=== PATIENT | female | born 1940 | race Caucasian/White ===

== ENCOUNTER → 2018-09-06 | Outpatient (REF) | payer MEDICARE ==
[2018-09-06 17:39] LABS: APPEARANCE, URINE HAZY (CLEAR); BACTERIA, URINE AUTO NEGATIVE (NEGATIVE); BILIRUBIN, URINE AUTO NEGATIVE (NEGATIVE); BLOOD, URINE BLOOD NEGATIVE (NEGATIVE); COLOR, URINE YELLOW (YELLOW); GLUCOSE, URINE (UA) AUTO NEGATIVE (NEGATIVE); KETONE, URINE AUTO NEGATIVE (NEGATIVE); LEUKOCYTE ESTERASE, URINE AUTO TRACE (NEGATIVE); MUCUS, URINE SMALL (NEGATIVE); NITRITE, URINE AUTO NEGATIVE (NEGATIVE); PROTEIN, URINE AUTO NEGATIVE (NEGATIVE); RBC, URINE AUTO 1 /HPF (0-3); SPECIFIC GRAVITY URINE AUTO 1.019 (1.002-1.035); SQUAMOUS EPITHELIAL CELL UR AU 7 /HPF (0-6); UROBILINOGEN, URINE AUTO 0.2 mg/dL (0.0-2.0); WBC, URINE AUTO 4 /HPF (0-3)
== END ==
LOC: M LAB REF 16:40
DX: N39.0 Urinary tract infection, site not specified (principal)
CPT/HCPCS: 81001

== ENCOUNTER → 2018-09-09 | Outpatient (REF) | payer MEDICARE ==
[2018-09-09 15:07] LABS: APPEARANCE, URINE HAZY (CLEAR); BACTERIA, URINE AUTO 1+ (NEGATIVE); BILIRUBIN, URINE AUTO NEGATIVE (NEGATIVE); BLOOD, URINE BLOOD NEGATIVE (NEGATIVE); COLOR, URINE YELLOW (YELLOW); GLUCOSE, URINE (UA) AUTO NEGATIVE (NEGATIVE); KETONE, URINE AUTO NEGATIVE (NEGATIVE); LEUKOCYTE ESTERASE, URINE AUTO NEGATIVE (NEGATIVE); MUCUS, URINE SMALL (NEGATIVE); NITRITE, URINE AUTO NEGATIVE (NEGATIVE); PROTEIN, URINE AUTO NEGATIVE (NEGATIVE); RBC, URINE AUTO 0 /HPF (0-3); SQUAMOUS EPITHELIAL CELL UR AU 0 /HPF (0-6); UROBILINOGEN, URINE AUTO 0.2 mg/dL (0.0-2.0); WBC, URINE AUTO 1 /HPF (0-3)
== END ==
LOC: M LAB REF 14:38
DX: N39.0 Urinary tract infection, site not specified (principal)
CPT/HCPCS: 81001

== ENCOUNTER → 2019-11-23 | Outpatient (REF) | payer MEDICARE ==
[2019-11-23 17:45] LABS: INFLUENZA A AMPLIFICATION NEGATIVE (NEGATIVE); INFLUENZA B AMPLIFICATION NEGATIVE (NEGATIVE)
== END ==
LOC: M LAB REF 12:10
PROVIDERS: ATTEND Physician Assistant Medical
DX: R50.9 Fever, unspecified (principal)

== ENCOUNTER 2019-12-09 12:38 | Emergency (ER) | payer MEDICARE ==
[~2019-12-09] VITALS: Ht 167.6 cm; Wt 79.1 kg
[2019-12-09] MEDS ORDERED: ANOR1AER (12:47)
[2019-12-09] MEDS ORDERED: LEVO25TA5 PO (12:47)
--- NOTE | 2019-12-09 14:38 | REP ---
CHEST, TWO VIEWS: Two views of the chest are performed without prior studies for comparison. There appears to be mild bibasilar interstitial fibrosis. No consolidating infiltrate is seen. Heart is normal in size. There is tortuosity of the thoracic aorta. Mediastinal silhouette is otherwise unremarkable. There is mild curvature of the thoracic spine convex to the right with degenerative changes. IMPRESSION: No evidence of acute infiltrate. Mild bibasilar interstitial fibrosis. Electronically Signed by Tony Huber MD 12/09/2019 07:59 P
[2019-12-09] MEDS ORDERED: AUGM875T28 PO (15:00)
[2019-12-09] MEDS ORDERED: FLON1SPR NARES (15:00)
[2019-12-09] MEDS ORDERED: CETI10CA2 PO (15:00)
[2019-12-09] MEDS ORDERED: PRED10TA2 PO (15:00)
[2019-12-09 15:10] VITALS: BP 166/83
== END 2019-12-09 15:26 | disposition home or self-care (01) ==
LOC: M ED 12:38
DX: J44.1 Chronic obstructive pulmonary disease with (acute) exacerbation (principal); J32.9 Chronic sinusitis, unspecified; E03.9 Hypothyroidism, unspecified; Z79.899 Other long term (current) drug therapy; Z79.890 Hormone replacement therapy; Z88.1 Allergy status to other antibiotic agents; Z87.891 Personal history of nicotine dependence

== ENCOUNTER → 2021-01-05 | Outpatient (CLI) | payer MEDICARE ==
[~2021-01-05] MED LIST: ANOR1AER; AUGM875T28 PO; CETI10CA2 PO; FLON1SPR NARES; ISOVUE-370 76% 100ML VIAL As Ordered ONE; LEVO25TA5 PO; PRED10TA2 PO
--- NOTE | 2021-01-05 10:16 | REPVR ---
PROCEDURE INFORMATION: Exam: CT Neck With Contrast Exam date and time: 01/05/2021 9:50 AM Age: 80 years old Clinical indication: Throat pain; Additional info: Dysphagia TECHNIQUE: Imaging protocol: Computed tomography images of the neck with intravenous contrast. Radiation optimization: All CT scans at this facility use at least one of these dose optimization techniques: automated exposure control; mA and/or kV adjustment per patient size (includes targeted exams where dose is matched to clinical indication); or iterative reconstruction. Contrast material: ISOVUE 370; Contrast volume: 75 ml; Contrast route: INTRAVENOUS (IV); COMPARISON: No relevant prior studies available. FINDINGS: Nasopharynx: Unremarkable. Oropharynx: Unremarkable. No significant tonsillar enlargement. Hypopharynx: Unremarkable. Larynx: Unremarkable. Normal epiglottis. Retropharyngeal space: Unremarkable. Submandibular/Parotid glands: Normal. Glands are normal in size. Thyroid: Normal. No enlarged or calcified nodules. Lymph nodes: Unremarkable. No lymphadenopathy. Trachea: Visualized trachea is unremarkable. Lungs: There are mild biapical emphysematous changes. Bones/joints: There is degenerative disc disease and spondylosis. There are severe degenerative changes at the left C1/C2 lateral articulation.. No acute fracture. Soft tissues: Unremarkable. No significant soft tissue swelling. IMPRESSION: No acute soft tissue abnormality. Electronically signed by: Phylicia Cardoso On 01/05/2021 10:17:06 AM
== END ==
LOC: M RAD 09:28
PROVIDERS: ATTEND Physician Assistant Medical
DX: R47.02 Dysphasia (principal)
CPT/HCPCS: 70491; Q9967

== ENCOUNTER → 2021-02-08 | Outpatient (CLI) | payer MEDICARE ==
[~2021-02-08] MED LIST changes: -ISOVUE-370 76% 100ML VIAL As Ordered ONE
--- NOTE | 2021-02-08 14:01 | REP ---
INDICATION: NECK PAIN. No history of trauma whatsoever COMPARISON: None. TECHNIQUE: Seven views FINDINGS: Seven views of the cervical spine show no acute fracture, dislocation or subluxation. There is C4-5, C6-7 and C7-T1 disc space narrowing which is moderate. The facet joints are well aligned bilaterally. Degenerative facet and uncovertebral joint changes are seen bilaterally at all levels. The intervertebral foramina are patent bilaterally and the neural canal is not encroached upon. There is no destructive osseous lesion. Flexion and extension does not appear to be particularly limited radiographically. The anterior spinal soft tissues appear unremarkable. The dens cannot be effectively evaluated secondary to the superimposition of osseous structures and/or dentition on all views. IMPRESSION: Chronic changes as described above. Although this plain radiographic evaluation of the cervical spine shows no evidence of a fracture, it should be remembered that CT is much more sensitive than plain radiography of the C-spine in detecting fractures. If this examination was ordered to rule out a fracture then CT of the cervical spine is recommended. <Electronically signed by Dayo Morales > 02/08/21 [id number]
== END ==
LOC: M RAD 13:23
PROVIDERS: ATTEND Physician Assistant Medical
DX: M54.2 Cervicalgia (principal)

== ENCOUNTER 2021-05-01 15:55 | Emergency (ER) | payer MEDICARE ==
[~2021-05-01] VITALS: Ht 167.6 cm; Wt 80.2 kg
[2021-05-01] MEDS ORDERED: BREO1INH3 (16:07)
[2021-05-01] MEDS ORDERED: NAPR-855 (16:07)
[2021-05-01] MEDS ORDERED: ADVI200C18 PO (16:08)
[2021-05-01] MEDS ORDERED: ACET650T15 PO (16:08)
[2021-05-01] MEDS ORDERED: traMADol 50 MG TAB PO ONE (17:30)
--- NOTE | 2021-05-01 18:25 | REPVR ---
PROCEDURE INFORMATION: Exam: XR Right Hip Exam date and time: 05/01/2021 5:50 PM Age: 80 years old Clinical indication: Hip pain and pelvic pain; Right hip TECHNIQUE: Imaging protocol: XR Right hip. Views: 2 or 3 views hip with pelvis when performed. COMPARISON: No relevant prior studies available. FINDINGS: Bones/joints: Marked bilateral hip arthrosis with joint space narrowing and femoroacetabular osteophytosis. Degenerative arthropathy in the visualized lower lumbar spine. Soft tissues: Unremarkable. 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 No acute findings. Electronically signed by: Eric Zambrano On 05/01/2021 18:25:06 PM
[2021-05-01] MEDS ORDERED: TRAM50TA2 PO (18:36)
[2021-05-01 19:21] VITALS: BP 188/97
== END 2021-05-01 19:26 | disposition home or self-care (01) ==
LOC: M ED 15:55
DX: M16.11 Unilateral primary osteoarthritis, right hip (principal); J44.9 Chronic obstructive pulmonary disease, unspecified; E03.9 Hypothyroidism, unspecified; Z88.1 Allergy status to other antibiotic agents; Z87.891 Personal history of nicotine dependence; Z79.899 Other long term (current) drug therapy; Z79.890 Hormone replacement therapy

== ENCOUNTER 2021-06-16 21:06 | Emergency (ER) | payer MEDICARE ==
[~2021-06-16] VITALS: Ht 167.6 cm; Wt 77.3 kg
[~2021-06-16 21:06] MED LIST changes: +ACET650T15 PO; +ADVI200C18 PO; +BREO1INH3; +NAPR-855; +TRAM50TA2 PO
[2021-06-16] MEDS ORDERED: LIDOCAINE W/EPINEPHRINE 1% 20ML VIAL As Ordered ONE (21:43)
[2021-06-16] MEDS ORDERED: BOOSTRIX/ADACEL VACCINE (DIPHTH/PERTUSS/ACELL/TETANUS) 0.5ML SYR IM ONE (22:10)
[2021-06-16 22:17] LABS: BASO % 0.7 % (0.0-1.0); EOS # 0.1 10^3/uL (0.0-0.5); EOS % 1.8 % (0.0-3.0); HEMATOCRIT 40.4 % (36.0-47.0); HEMOGLOBIN 13.3 g/dl (12.0-15.5); LYMPH # 1.6 10^3/uL (1.5-5.0); MEAN CORPUSCULAR HEMOGLOBIN 29.4 pg (27.0-33.0); MEAN CORPUSCULAR HGB CONC 32.9 g/dl (32.0-36.5); MEAN CORPUSCULAR VOLUME 89.2 fl (80.0-96.0); MONO # 0.6 10^3/uL (0.0-0.8); MONO % 9.1 % (2.0-8.0); NEUTROPHILS # 3.7 10^3/uL (1.5-8.5); NEUTROPHILS % 60.2 % (36.0-66.0); PLATELET COUNT, AUTOMATED 202 10^3/uL (150-450); RED BLOOD COUNT 4.53 10^6/uL (4.00-5.40); WHITE BLOOD COUNT 6.1 10^3/uL (4.0-10.0)
[2021-06-16 22:27] LABS: INR 1.05; PROTHROMBIN TIME 14.1 SECONDS (12.7-14.5)
[2021-06-16 22:28] LABS: PARTIAL THROMBOPLASTIN TIME 28.6 SECONDS (25.9-37.0)
[2021-06-16] MEDS ORDERED: ISOVUE-370 76% 100ML VIAL As Ordered ONE (22:44)
[2021-06-16 22:45] LABS: ALBUMIN 3.7 GM/DL (3.2-5.2); BILIRUBIN,TOTAL 0.5 MG/DL (0.2-1.0); CALCIUM LEVEL 8.7 MG/DL (8.8-10.2); CREATININE FOR GFR 1.12 MG/DL (0.55-1.30); GLOMERULAR FILTRATION RATE 49.8 (>32); POTASSIUM SERUM 3.9 MEQ/L (3.5-5.1); TOTAL PROTEIN 6.4 GM/DL (6.4-8.2)
--- NOTE | 2021-06-16 23:44 | REPVR ---
PROCEDURE INFORMATION: Exam: CT Cervical Spine Without Contrast Exam date and time: 06/16/2021 10:56 PM Age: 81 years old Clinical indication: Neck pain; Additional info: Fall, right sided head injury/lac/hematoma TECHNIQUE: Imaging protocol: Computed tomography images of the cervical spine without contrast. Radiation optimization: All CT scans at this facility use at least one of these dose optimization techniques: automated exposure control; mA and/or kV adjustment per patient size (includes targeted exams where dose is matched to clinical indication); or iterative reconstruction. COMPARISON: CR Spine, Cervical 02/08/2021 1:35 PM FINDINGS: Limitations: Evaluation of the spinal canal and discs are limited. Vertebrae: No acute fracture. No subluxation. Diffuse facet arthropathy. C1-C2: Joint space narrowing and marginal osteophytes changes at the atlantoodontoid joint. C2-C3: No significant disc protrusion. No severe spinal canal stenosis. No significant neural foraminal narrowing. C3-C4: No significant disc protrusion. No severe spinal canal stenosis. No significant neural foraminal narrowing. C4-C5: 4 mm right lateral recess disc osteophyte complex. Moderate spinal stenosis. Severe right neural foraminal narrowing. Mild left neural foraminal narrowing. C5-C6: 4 mm right lateral recess disc osteophyte complex. Moderate to severe spinal stenosis. Moderate right neural foraminal narrowing. Mild left neural foraminal narrowing. C6-C7: 3 mm disc osteophyte complex. Moderate spinal stenosis. Mild right neural foraminal narrowing. Moderate left neural foraminal narrowing. C7-T1: No significant disc protrusion. No severe spinal canal stenosis. No significant neural foraminal narrowing. Other bones/joints: Acute severely displaced fracture of the mid right clavicle. Clavicle is not fully imaged on this study. Soft tissues: Unremarkable. Dental: Patient is nearly edentulous. Lungs: Centrilobular emphysematous lung disease. IMPRESSION: 1. No acute spinal fracture. 2. Multilevel degenerative disc disease as described. 3. Acute severely displaced fracture of the mid right clavicle. Electronically signed by: Servando Fortune On 06/16/2021 23:43:43 PM
--- NOTE | 2021-06-16 23:44 | REPVR ---
PROCEDURE INFORMATION: Exam: CT Head Without Contrast Exam date and time: 06/16/2021 10:56 PM Age: 81 years old Clinical indication: Injury or trauma; Fall; Concussion/head injury; Consciousness not specified; Additional info: Fall, right sided head injury/lac/hematoma TECHNIQUE: Imaging protocol: Computed tomography of the head without contrast. Radiation optimization: All CT scans at this facility use at least one of these dose optimization techniques: automated exposure control; mA and/or kV adjustment per patient size (includes targeted exams where dose is matched to clinical indication); or iterative reconstruction. COMPARISON: CT Neck with contrast 01/05/2021 9:49 AM FINDINGS: Limitations: Limited by motion artifact. Brain: Normal. No hemorrhage. Unremarkable white matter. No mass effect. Cortical pritchett-white matter differentiation is preserved. Cerebral ventricles: No ventriculomegaly. Paranasal sinuses: Visualized sinuses are unremarkable. No fluid levels. Mastoid air cells: Visualized mastoid air cells are well aerated. Vasculature: Atherosclerotic calcification of the carotid siphon. Bones/joints: Unremarkable. No acute fracture. Soft tissues: Right parietal scalp swelling. IMPRESSION: 1. No acute intracranial hemorrhage. 2. Right parietal scalp swelling. Electronically signed by: Servando Fortune On 06/16/2021 23:44:23 PM
[2021-06-16] MEDS ORDERED: KETOROLAC 30 MG/ML 1ML VIAL IV ONE (23:50)
--- NOTE | 2021-06-16 23:51 | REPVR ---
PROCEDURE INFORMATION: Exam: CT Chest With Contrast; Diagnostic Exam date and time: 06/16/2021 10:56 PM Age: 81 years old Clinical indication: Injury or trauma; Fall; Blunt trauma (contusions or hematomas); Additional info: Fall, right chest/flank pain TECHNIQUE: Imaging protocol: Diagnostic computed tomography of the chest with contrast. Radiation optimization: All CT scans at this facility use at least one of these dose optimization techniques: automated exposure control; mA and/or kV adjustment per patient size (includes targeted exams where dose is matched to clinical indication); or iterative reconstruction. Contrast material: ISO; Contrast volume: 100 ml; Contrast route: INTRAVENOUS (IV); COMPARISON: CR Chest, 2 view PA, Lat 12/09/2019 2:12 PM FINDINGS: Limitations: Limited by motion artifact. Bronchial tree: Visualized bronchial tree is unremarkable. Lungs: Emphysematous lung disease. Scattered linear atelectasis bilaterally. No acute consolidation. Subpleural nodule in the lateral basal right lower lobe measuring 4 mm. (Series 201, image 69). Pleural spaces: Unremarkable. No pneumothorax. No pleural effusion. Heart: Unremarkable. No cardiomegaly. No pericardial effusion. Aorta: Ascending thoracic aorta measures 3.6 cm. Aortic arch measures 2.6 cm. Descending thoracic aorta measures 2.5 cm. No aortic dissection. No aortic rupture. Mild atherosclerotic disease. Lymph nodes: Unremarkable. No enlarged lymph nodes. Liver: Multiple benign-appearing cysts in the liver measuring up to 7.1 cm. Spleen: Multiple calcified granulomas in the spleen. Bones/joints: Acute severely displaced fracture of the mid right clavicle. Severe degenerative spine. Acute mildly displaced fracture of the right 5th rib laterally. Soft tissues: Unremarkable. IMPRESSION: 1. Borderline dilated ascending thoracic aorta. 2. Multiple benign-appearing cysts in the liver. 3. Subpleural lung nodule in the right lower lobe. For patients at low risk (minimal or absent history of smoking and of other known risk factors), no routine follow-up is indicated. For patients at high risk (history of smoking or of other known risk factors), consider optional CT Chest at 12 months. (Reference: Will) 4. Acute severely displaced fracture of the mid right clavicle. 5. Acute mildly displaced fracture of the right 5th rib laterally. COMMENTS: Consistent with the [employer]'s Incidental Findings Committee white paper (J Am Kavin Radiol 2018): Any incidental renal lesion less than 1 cm or classified as too small to characterize, or any incidental cystic renal lesion characterized as simple-appearing, is likely benign. No follow-up imaging is recommended for these lesions per consensus recommendations based on imaging criteria. REFERENCES: Will Delgado, et al. Guidelines for Management of Incidental Pulmonary Nodules Detected on CT Images: From the Fleischner Society 2017. Radiology. 2017;284(1):228-243. Electronically signed by: Servando Fortune On 06/16/2021 23:50:57 PM
--- NOTE | 2021-06-16 23:57 | REPVR ---
PROCEDURE INFORMATION: Exam: CT Abdomen And Pelvis With Contrast Exam date and time: 06/16/2021 10:56 PM Age: 81 years old Clinical indication: Abdominal pain; Generalized; Additional info: Fall, right chest/flank pain TECHNIQUE: Imaging protocol: Computed tomography of the abdomen and pelvis with contrast. Radiation optimization: All CT scans at this facility use at least one of these dose optimization techniques: automated exposure control; mA and/or kV adjustment per patient size (includes targeted exams where dose is matched to clinical indication); or iterative reconstruction. Contrast material: ISO; Contrast volume: 100 ml; Contrast route: INTRAVENOUS (IV); COMPARISON: CR Hip,AP,LAT to include Pelvis RIGHT 05/01/2021 5:31 PM FINDINGS: Lungs: Scattered linear atelectasis in the lung bases. Liver: Multiple benign-appearing cysts in the liver measuring up to 7.1 cm. There are few irregular hypodense lesions in the inferior right hepatic lobe have coarse peripheral calcification. Largest lesion is located in the inferior tip of the right hepatic lobe measuring 2.1 cm. There is enlarged Emi lobe of the liver. Gallbladder and bile ducts: Normal. No calcified stones. No ductal dilation. Pancreas: Normal. No ductal dilation. Spleen: Normal. No splenomegaly. Adrenal glands: Normal. No mass. Kidneys and ureters: No hydronephrosis. Parapelvic renal cysts bilaterally. No follow-up is necessary. Stomach and bowel: Small sliding-type gastric hiatal hernia. Moderate stool the status post hysterectomy. No abnormal bowel dilatation. No abnormal bowel wall thickening. Sigmoid diverticulosis without diverticulitis. Appendix: No evidence of appendicitis. Intraperitoneal space: Unremarkable. No free air. No significant fluid collection. Vasculature: Moderate atherosclerotic disease. No aortic aneurysm. Lymph nodes: Unremarkable. No enlarged lymph nodes. Urinary bladder: Unremarkable as visualized. Reproductive: Unremarkable as visualized. Pelvic Floor: There is dilatation of the levator hiatus. Bones/joints: Severe degenerative spine. No acute fracture. Severe osteoarthritic changes of the hips bilaterally. Soft tissues: Unremarkable. IMPRESSION: 1. No evidence of acute abdominal injury. 2. Multiple benign-appearing cysts in the liver. No follow-up is necessary. 3. There are few irregular hypodense lesions in the inferior right hepatic lobe have coarse peripheral calcification. Possible dystrophic calcifications. Consider routine evaluation with non-emergent liver MRI. 4. Additional findings as described. COMMENTS: Consistent with the [employer]'s Incidental Findings Committee white paper (J Am Kavin Radiol 2018): Any incidental renal lesion less than 1 cm or classified as too small to characterize, or any incidental cystic renal lesion characterized as simple-appearing, is likely benign. No follow-up imaging is recommended for these lesions per consensus recommendations based on imaging criteria. Electronically signed by: Servando Fortune On 06/16/2021 23:57:11 PM
[2021-06-17] VITALS: BP 195/96
--- NOTE | 2021-06-17 01:12 | REPVR ---
PROCEDURE INFORMATION: Exam: XR Right Hip Exam date and time: 06/16/2021 12:48 AM Age: 81 years old Clinical indication: Fall on right side, pain; Additional info: Fall on right side, pain TECHNIQUE: Imaging protocol: XR Right hip. Views: 2 or 3 views hip with pelvis when performed. COMPARISON: CT ABD/PEL W/IV CONTRAST ONLY 06/16/2021 10:59 PM FINDINGS: Bones/joints: No acute fracture. No dislocation. Generalized osteopenia. Severe joint space narrowing in the hips bilaterally. Subchondral sclerosis and marginal osteophytes in the hips. Soft tissues: Unremarkable. Organs: Residual contrast in the bladder. IMPRESSION: 1. No acute fracture. 2. Severe osteoarthritic changes in the hips bilaterally. Electronically signed by: Servando Fortune On 06/17/2021 01:11:54 AM
--- NOTE | 2021-06-17 01:12 | REPVR ---
PROCEDURE INFORMATION: Exam: XR Right Shoulder Exam date and time: 06/16/2021 12:48 AM Age: 81 years old Clinical indication: Fall on right side, pain; Additional info: Fall on right saide, pain TECHNIQUE: Imaging protocol: XR Right shoulder. Views: 2 or more views. Transscapular view was also included. COMPARISON: CT Chest with contrast 06/16/2021 10:59 PM FINDINGS: Bones/joints: Acute moderately displaced fracture of the mid right clavicle. Distal fracture fracture fragment is depressed approximately 5 mm. No significant angulation. Mild hypertrophic changes of the acromioclavicular joint. No dislocation. Soft tissues: Normal. IMPRESSION: Acute moderately displaced fracture of the mid right clavicle. Electronically signed by: Servando Fortune On 06/17/2021 01:12:40 AM
--- NOTE | 2021-06-17 01:13 | REPVR ---
PROCEDURE INFORMATION: Exam: XR Right Elbow Exam date and time: 06/16/2021 12:48 AM Age: 81 years old Clinical indication: Fall on right side, pain; Additional info: Fall on right saide, pain TECHNIQUE: Imaging protocol: XR Right elbow. Views: 3 or more views. COMPARISON: No relevant prior studies available. FINDINGS: Limitations: Examination is limited by obliquity of the projection. True AP and lateral views were not submitted. Bones/joints: No acute fracture. No dislocation. Generalized osteopenia. Soft tissues: Normal. IMPRESSION: 1. Limited evaluation. 2. No acute fracture. Electronically signed by: Servando Fortune On 06/17/2021 01:13:42 AM
[2021-06-17] MEDS ORDERED: PERC5TAB12 PO (02:08)
[2021-06-17] MEDS ORDERED: KETO10TAB PO (02:08)
[2021-06-17] MEDS ORDERED: OXYCODONE/APAP 5MG/325MG(BULK FOR ED) 1 TABLET PO ONE (02:10)
--- NOTE | 2021-06-17 12:23 | ED PDOC ---
Post-Departure Follow-Up certified letter sent to pt re formal read of ct chest and abd/p. needs outpt fu . no pcp listed.d obtain pcp name and fax for fu Cherri Connelly MD Jun 17, 2021 12:23
== END 2021-06-17 03:00 | disposition home or self-care (01) ==
LOC: M ED 21:06
DX: S22.31XA Fracture of one rib, right side, initial encounter for closed fracture (principal); S42.001A Fracture of unspecified part of right clavicle, initial encounter for closed fracture; S01.01XA Laceration without foreign body of scalp, initial encounter; W19.XXXA Unspecified fall, initial encounter; Y92.099 Unspecified place in other non-institutional residence as the place of occurrence of the external cause; Y93.9 Activity, unspecified; Y99.9 Unspecified external cause status; M16.0 Bilateral primary osteoarthritis of hip; K76.89 Other specified diseases of liver; R91.1 Solitary pulmonary nodule; M50.30 Other cervical disc degeneration, unspecified cervical region; Z79.899 Other long term (current) drug therapy; Z88.1 Allergy status to other antibiotic agents; Z88.8 Allergy status to other drugs, medicaments and biological substances
CPT/HCPCS: 70450; 71260; 72125; 73030; 73080; 73502; 74177; 80047; 80053; 85025; 85610; 85730; 86850; 86900; 86901; 90471; 90715; 96374; 99284; J1885; Q9967

== ENCOUNTER → 2021-07-08 | Outpatient (CLI) | payer MEDICARE ==
[~2021-07-08] MED LIST changes: +KETO10TAB PO; +PERC5TAB12 PO
--- NOTE | 2021-07-08 12:03 | REP ---
INDICATION: EVAL FOR OCCULT FX. COMPARISON: Standard contrast-enhanced chest CT of 06/16/2021 which showed a right clavicular fracture TECHNIQUE: Standard helical technique without intravenous contrast attention right clavicle FINDINGS: The comminuted inferiorly displaced clavicle fracture is unchanged compared to the chest CT. There are multiple right-sided rib fractures. There is a mid posterior right 4th rib fracture and an additional 4th rib fracture more distally. There is a proximal posterior 5th rib fracture. There is a probable posterior 6th rib fracture. There is a proximal posterior 7th rib fracture. There is a proximal posterior 8th rib fracture. The glenohumeral relationship is maintained. The acromioclavicular relationship is maintained. The imaged lung mercado shows no pneumothorax. IMPRESSION: Clavicular and multiple rib fractures as described above. <Electronically signed by Dayo Morales > 07/08/21 [id number]
--- NOTE | 2021-07-08 12:08 | REP ---
INDICATION: EVAL FX COMPARISON: Standard chest CT with contrast of 06/16/2021 TECHNIQUE: Although ordered as a chest CT this is actually a limited chest CT attention right clavicle. FINDINGS: There is a comminuted inferiorly displaced distal clavicular fracture which 1 compared to the prior standard chest CT and using bone window technique does not appear to be significantly changed. There are multiple right-sided rib fractures. See the right shoulder report made today. There is no discernible callus formation at this time. IMPRESSION: Fractures as described above. <Electronically signed by Dayo Morales > 07/08/21 [id number]
== END ==
LOC: M PLAIMG 10:12
PROVIDERS: ATTEND Physician Assistant Surgical
DX: S42.021D Displaced fracture of shaft of right clavicle, subsequent encounter for fracture with routine healing (principal); S22.41XA Multiple fractures of ribs, right side, initial encounter for closed fracture

== ENCOUNTER → 2021-08-03 | Outpatient (CLI) | payer MEDICARE ==
--- NOTE | 2021-08-03 13:34 | REP ---
INDICATION: SUMAN LEG EDEMA ?DVT COMPARISON: None. TECHNIQUE: Real time compression and duplex Doppler interrogation of the bilateral lower extremity deep venous system is performed. Compression ultrasound is performed of the bilateral peroneal and posterior tibial veins. FINDINGS: Bilaterally, the common femoral, superficial femoral and popliteal veins are fully compressible with transducer pressure and demonstrate normal spontaneous and phasic flow, without evidence of deep venous thrombosis. No thrombus is seen in the bilateral visualized portions of the peroneal and posterior tibial veins, evaluation limited secondary to soft tissue edema. IMPRESSION: No evidence of deep venous thrombosis of the bilateral lower extremity femoral popliteal venous system. <Electronically signed by Tony Huber > 08/03/21 [id number]
== END ==
LOC: M RAD 11:47
PROVIDERS: ATTEND Internal Medicine Pulmonary Disease
DX: R60.0 Localized edema (principal)

== ENCOUNTER → 2021-12-15 | Outpatient (CLI) | payer MEDICARE ==
[~2021-12-15] MED LIST changes: +ISOVUE-370 76% 100ML VIAL As Ordered ONE
== END ==
LOC: M RAD 10:58
PROVIDERS: ATTEND Nurse Practitioner Adult Health
DX: I71.2 Thoracic aortic aneurysm, without rupture (principal); R91.1 Solitary pulmonary nodule
CPT/HCPCS: 71260; Q9967

== ENCOUNTER → 2022-01-11 | Outpatient (CLI) | payer MEDICARE ==
[~2022-01-11] MED LIST changes: -ISOVUE-370 76% 100ML VIAL As Ordered ONE
== END ==
LOC: M WUC 14:28
PROVIDERS: ATTEND Nurse Practitioner Adult Health
DX: L30.9 Dermatitis, unspecified (principal)

== ENCOUNTER → 2022-04-05 | Outpatient (CLI) | payer MEDICARE | LOC: M RAD 09:47 | PROVIDERS: ATTEND Nurse Practitioner Adult Health | DX: R51.9 Headache, unspecified (principal) ==

== ENCOUNTER → 2022-06-21 | Outpatient (CLI) | payer MEDICARE | LOC: M WUC 13:49 | PROVIDERS: ATTEND Physician Assistant | DX: M25.562 Pain in left knee (principal) ==

== ENCOUNTER → 2022-06-22 | Outpatient (CLI) | payer MEDICARE | LOC: M WHC 14:55 | PROVIDERS: ATTEND Physician Assistant | DX: Z01.810 Encounter for preprocedural cardiovascular examination (principal); M25.562 Pain in left knee; M71.22 Synovial cyst of popliteal space [Baker], left knee; R09.89 Other specified symptoms and signs involving the circulatory and respiratory systems; R60.9 Edema, unspecified ==

== ENCOUNTER → 2022-07-06 | Outpatient (CLI) | payer MEDICARE | LOC: M RAD 10:58 | PROVIDERS: ATTEND Internal Medicine Critical Care Medicine | DX: R91.8 Other nonspecific abnormal finding of lung field (principal) ==

== ENCOUNTER → 2022-10-24 | Outpatient (CLI) | payer MEDICARE | LOC: M PLAIMG 15:56 | PROVIDERS: ATTEND Internal Medicine Critical Care Medicine | DX: J18.9 Pneumonia, unspecified organism (principal) ==

== ENCOUNTER → 2023-01-01 | Outpatient (CLI) | payer MEDICARE | LOC: M PLAIMG 12:53 | PROVIDERS: ATTEND Internal Medicine Critical Care Medicine | DX: J44.9 Chronic obstructive pulmonary disease, unspecified (principal) ==

== ENCOUNTER → 2023-01-05 | Outpatient (CLI) | payer MEDICARE | LOC: M WUC 09:53 | PROVIDERS: ATTEND Physician Assistant | DX: S16.1XXA Strain of muscle, fascia and tendon at neck level, initial encounter (principal); X58.XXXA Exposure to other specified factors, initial encounter; Y92.89 Other specified places as the place of occurrence of the external cause; Y93.89 Activity, other specified; Y99.8 Other external cause status ==

== ENCOUNTER → 2023-02-16 | Outpatient (CLI) | payer MEDICARE ==
[~2023-02-16] MED LIST changes: +ISOVUE-370 76% 100ML VIAL As Ordered ONE
== END ==
LOC: M RAD 12:12
PROVIDERS: ATTEND Nurse Practitioner Adult Health
DX: I71.20 Thoracic aortic aneurysm, without rupture, unspecified (principal)
CPT/HCPCS: 71260; Q9967

== ENCOUNTER → 2023-10-29 | Outpatient (CLI) | payer MEDICARE ==
[~2023-10-29] MED LIST changes: -ISOVUE-370 76% 100ML VIAL As Ordered ONE
== END ==
LOC: M PLAIMG 10:06
PROVIDERS: ATTEND Internal Medicine Critical Care Medicine
DX: R91.1 Solitary pulmonary nodule (principal)

== ENCOUNTER → 2023-12-10 | Outpatient (CLI) | payer MEDICARE | LOC: M WUC 11:50 | PROVIDERS: ATTEND Internal Medicine Critical Care Medicine | DX: J44.9 Chronic obstructive pulmonary disease, unspecified (principal) ==

== ENCOUNTER 2023-12-31 17:26 | Emergency (ER) | payer MEDICARE ==
[~2023-12-31] VITALS: Ht 167.6 cm; Wt 71.1 kg
[2023-12-31 19:34] VITALS: BP 140/68; TEMP 98.6; O2SAT 97
[2023-12-31] MEDS: ACETAMINOPHEN TAB 650MG DOSE (2X325MG) PO ONE (20:48)
== END 2023-12-31 20:59 | disposition home or self-care (01) ==
LOC: M ED 17:26
DX: S20.219A Contusion of unspecified front wall of thorax, initial encounter (principal); W01.0XXA Fall on same level from slipping, tripping and stumbling without subsequent striking against object, initial encounter; M16.0 Bilateral primary osteoarthritis of hip; M81.0 Age-related osteoporosis without current pathological fracture; E03.9 Hypothyroidism, unspecified; Z88.1 Allergy status to other antibiotic agents; Y92.009 Unspecified place in unspecified non-institutional (private) residence as the place of occurrence of the external cause; Y93.89 Activity, other specified; Y99.9 Unspecified external cause status; Z79.891 Long term (current) use of opiate analgesic; Z79.52 Long term (current) use of systemic steroids; Z79.899 Other long term (current) drug therapy

== ENCOUNTER 2024-01-16 12:07 | Emergency (ER) | payer MEDICARE ==
[~2024-01-16] VITALS: Ht 165.1 cm; Wt 71.4 kg
[2024-01-16 12:08] VITALS: BP 162/80; TEMP 96.4; O2SAT 100
== END 2024-01-16 14:46 | disposition home or self-care (01) ==
LOC: M ED 12:07
DX: M71.22 Synovial cyst of popliteal space [Baker], left knee (principal); J44.9 Chronic obstructive pulmonary disease, unspecified; E03.9 Hypothyroidism, unspecified; Z88.8 Allergy status to other drugs, medicaments and biological substances; Z79.1 Long term (current) use of non-steroidal anti-inflammatories (NSAID); Z79.899 Other long term (current) drug therapy

== ENCOUNTER → 2024-02-28 | Outpatient (CLI) | payer MEDICARE ==
[2024-02-28 15:38] LABS: ALBUMIN 3.6 G/DL (3.2-5.2); ALKALINE PHOSPHATASE 56 U/L (46-116); ALT/SGPT 15 U/L (7.0-40); AST/SGOT 14 U/L (<34); BILIRUBIN,TOTAL 0.7 MG/DL (0.3-1.2); BLOOD UREA NITROGEN 14 MG/DL (9-23); CALCIUM LEVEL 9.1 MG/DL (8.3-10.6); CARBON DIOXIDE LEVEL 31 MMOL/L (20-31); CHLORIDE LEVEL 105 MMOL/L (98-107); CREATININE FOR GFR 0.81 MG/DL (0.55-1.30); GLOMERULAR FILTRATION RATE > 60.0 (>32); GLUCOSE, FASTING 84 MG/DL (74-106); MAGNESIUM LEVEL 1.7 MG/DL (1.8-2.4); POTASSIUM SERUM 4.1 MMOL/L (3.5-5.1); SODIUM LEVEL 140 MMOL/L (136-145); TOTAL PROTEIN 5.9 G/DL (5.7-8.2)
== END ==
LOC: M PLALAB 12:05
PROVIDERS: ATTEND Internal Medicine Critical Care Medicine
DX: R06.00 Dyspnea, unspecified (principal); Z79.899 Other long term (current) drug therapy

== ENCOUNTER → 2024-03-07 | Outpatient (CLI) | payer MEDICARE | LOC: M EKG 12:02 | PROVIDERS: ATTEND Internal Medicine Critical Care Medicine | DX: R00.1 Bradycardia, unspecified (principal) ==

== ENCOUNTER → 2024-05-19 | Outpatient (CLI) | payer MEDICARE ==
[2024-05-19 15:37] LABS: BLOOD UREA NITROGEN 15 MG/DL (9-23); CALCIUM LEVEL 8.9 MG/DL (8.3-10.6); CARBON DIOXIDE LEVEL 32 MMOL/L (20-31); CHLORIDE LEVEL 105 MMOL/L (98-107); CREATININE FOR GFR 0.77 MG/DL (0.55-1.30); GLOMERULAR FILTRATION RATE > 60.0 (>32); GLUCOSE, FASTING 90 MG/DL (74-106); MAGNESIUM LEVEL 1.9 MG/DL (1.8-2.4); POTASSIUM SERUM 4.4 MMOL/L (3.5-5.1); SODIUM LEVEL 138 MMOL/L (136-145)
== END ==
LOC: M PLALAB 11:59
PROVIDERS: ATTEND Internal Medicine Critical Care Medicine
DX: R00.1 Bradycardia, unspecified (principal); R06.02 Shortness of breath

== ENCOUNTER 2024-06-20 12:52 | Emergency (ER) | payer MEDICARE ==
[~2024-06-20] VITALS: Ht 167.6 cm; Wt 70.3 kg
[2024-06-20] MEDS ORDERED: TREL1AER PO (13:06)
[2024-06-20 14:29] LABS: BASO % 0.9 % (0.0-1.0); EOS # 0.1 10^3/uL (0.0-0.5); EOS % 1.6 % (0.0-3.0); HEMATOCRIT 40.6 % (36.0-47.0); HEMOGLOBIN 13.3 g/dl (12.0-15.5); LYMPH % 22.2 % (24.0-44.0); MEAN CORPUSCULAR HGB CONC 32.8 g/dl (32.0-36.5); MEAN CORPUSCULAR VOLUME 91.6 fl (80.0-96.0); MONO # 0.5 10^3/uL (0.0-0.8); MONO % 10.3 % (2.0-8.0); NEUTROPHILS # 2.9 10^3/uL (1.5-8.5); NEUTROPHILS % 64.6 % (36.0-66.0); PLATELET COUNT, AUTOMATED 226 10^3/uL (150-450); RED BLOOD COUNT 4.43 10^6/uL (4.00-5.40); WHITE BLOOD COUNT 4.5 10^3/uL (4.0-10.0)
[2024-06-20 14:41] LABS: INR 1.07; PARTIAL THROMBOPLASTIN TIME 26.7 SECONDS (24.8-34.2); PROTHROMBIN TIME 13.6 SECONDS (12.5-14.5)
[2024-06-20 14:48] LABS: ALKALINE PHOSPHATASE 64 U/L (46-116); ALT/SGPT 16 U/L (7.0-40); AST/SGOT 15 U/L (<34); BILIRUBIN,DIRECT 0.2 MG/DL (<0.4); BILIRUBIN,TOTAL 0.6 MG/DL (0.3-1.2); BLOOD UREA NITROGEN 18 MG/DL (9-23); CALCIUM LEVEL 9.1 MG/DL (8.3-10.6); CARBON DIOXIDE LEVEL 30 MMOL/L (20-31); CHLORIDE LEVEL 105 MMOL/L (98-107); CREATININE FOR GFR 0.84 MG/DL (0.55-1.30); GLOMERULAR FILTRATION RATE > 60.0 (>32); GLUCOSE, FASTING 89 MG/DL (74-106); POTASSIUM SERUM 4.4 MMOL/L (3.5-5.1); SODIUM LEVEL 137 MMOL/L (136-145); TOTAL PROTEIN 6.5 G/DL (5.7-8.2)
[2024-06-20 16:23] VITALS: BP 161/73; TEMP 96.7; O2SAT 100
== END 2024-06-20 16:37 | disposition home or self-care (01) ==
LOC: M ED 12:52
DX: M71.22 Synovial cyst of popliteal space [Baker], left knee (principal); Z88.1 Allergy status to other antibiotic agents; Z79.1 Long term (current) use of non-steroidal anti-inflammatories (NSAID); Z79.899 Other long term (current) drug therapy

== ENCOUNTER → 2024-08-05 | Outpatient (CLI) | payer MEDICARE ==
[~2024-08-05] MED LIST changes: +TREL1AER PO
[2024-08-05 14:19] LABS: BLOOD UREA NITROGEN 22 MG/DL (9-23); CALCIUM LEVEL 9.2 MG/DL (8.3-10.6); CARBON DIOXIDE LEVEL 31 MMOL/L (20-31); CHLORIDE LEVEL 105 MMOL/L (98-107); CREATININE FOR GFR 0.84 MG/DL (0.55-1.30); GLOMERULAR FILTRATION RATE > 60.0 (>32); GLUCOSE, FASTING 88 MG/DL (74-106); POTASSIUM SERUM 4.6 MMOL/L (3.5-5.1); SODIUM LEVEL 141 MMOL/L (136-145)
== END ==
LOC: M PLALAB 11:32
PROVIDERS: ATTEND Internal Medicine Cardiovascular Disease
DX: R06.09 Other forms of dyspnea (principal)

== ENCOUNTER → 2024-11-07 | Outpatient (REF) | payer MEDICARE | LOC: M LAB REF 16:54 | PROVIDERS: ATTEND Internal Medicine Critical Care Medicine | DX: B37.0 Candidal stomatitis (principal) ==

== ENCOUNTER → 2025-02-10 | Outpatient (CLI) | payer MEDICARE | LOC: M RAD 11:18 | PROVIDERS: ATTEND Internal Medicine Cardiovascular Disease | DX: R60.0 Localized edema (principal) ==

== ENCOUNTER → 2025-04-16 | Outpatient (CLI) | payer MEDICARE ==
[~2025-04-16] MED LIST changes: +ISOVUE-370 76% 100 ML VIAL ONE
== END ==
LOC: M PLAIMG 08:17
PROVIDERS: ATTEND Physician Assistant Medical
DX: R10.13 Epigastric pain (principal)
CPT/HCPCS: 74177; Q9967

== ENCOUNTER → 2025-05-05 | Outpatient (REF) | payer MEDICARE ==
[~2025-05-05] MED LIST changes: +ACET-1515 PO; -ACET650T15 PO; -ISOVUE-370 76% 100 ML VIAL ONE
== END ==
LOC: M LAB REF 17:14
PROVIDERS: ATTEND Otolaryngology
DX: B37.0 Candidal stomatitis (principal)

== ENCOUNTER → 2025-06-09 | Outpatient (CLI) | payer MEDICARE ==
[~2025-06-09] MED LIST changes: +E-Z-GAS II EFFERVESCENT PACKET (SODIUM BICARB./CITRIC ACID/SIMETHICONE) As Ordered ONE; +E-Z-HD 98% w/w 340 GM SUSP BTL As Ordered ONE; +E-Z-PAQUE 96% w/w SUSP 176 GM BTL As Ordered ONE
== END ==
LOC: M RAD 07:52
PROVIDERS: ATTEND Internal Medicine Critical Care Medicine
DX: R13.10 Dysphagia, unspecified (principal); J39.2 Other diseases of pharynx; K44.9 Diaphragmatic hernia without obstruction or gangrene

== ENCOUNTER 2025-07-15 10:40 | Day surgery (SDC) | payer MEDICARE ==
[~2025-07-15] VITALS: Ht 167.6 cm; Wt 66.0 kg
[~2025-07-15 10:40] MED LIST changes: +ACET650T61 PO; +ANOR1AER IN; -E-Z-GAS II EFFERVESCENT PACKET (SODIUM BICARB./CITRIC ACID/SIMETHICONE) As Ordered ONE; -E-Z-HD 98% w/w 340 GM SUSP BTL As Ordered ONE; -E-Z-PAQUE 96% w/w SUSP 176 GM BTL As Ordered ONE; +FLON1SPR; +HYDR12.510 PO; +LORA-243 PO; +METH78GE TP; +MONT-5 PO; +OMEP1CAP73 PO; +OSTETAB2 PO
[2025-07-15] MEDS ORDERED: LIDOCAINE 2% 100 MG/5 ML SDV (FOR ANES.) As Ordered ONE (11:44)
[2025-07-15 12:07] VITALS: TEMP 98.2
[2025-07-15 12:30] VITALS: BP 134/76; O2SAT 99
== END 2025-07-15 12:43 | disposition home or self-care (01) ==
LOC: M OPP 10:40
PROVIDERS: ATTEND Internal Medicine Gastroenterology
DX: K22.2 Esophageal obstruction (principal); R13.10 Dysphagia, unspecified; R93.3 Abnormal findings on diagnostic imaging of other parts of digestive tract; Z88.1 Allergy status to other antibiotic agents; Z79.51 Long term (current) use of inhaled steroids; Z79.899 Other long term (current) drug therapy; J44.9 Chronic obstructive pulmonary disease, unspecified